=== PATIENT | female | born 1980 | race Caucasian/White ===

== ENCOUNTER → 2016-10-26 | Outpatient (CLI) | payer OTHER ==
[~2016-10-26] VITALS: Ht 167.6 cm; Wt 112.5 kg
[~2016-10-26] MED LIST: CLAR1TAB2 PO; LIDOCAINE 2% INJ 100 MG/5 ML SDV (FOR ANES.) As Ordered ONE; MEDR1VL IM; NS 1,000 ML IV SCH; PRIL20CA PO; PROPOFOL 200 MG/20 ML VIAL As Ordered ONE
--- NOTE | 2016-10-26 09:30 | ROOR ---
Patient Name: Hilary Bacon Procedure Date: 10/26/2016 9:13 AM Date of : 1980 Age: 35 Room: M OP Gender: Female Note Status: Finalized Procedure: Upper GI endoscopy + Biopsies Indications: Heartburn Providers: Jelani Salgado MD Referring MD: GAETANO GALICIA DO Requesting Provider: Medicines: Monitored Anesthesia Care Complications: No immediate complications. Procedure: Pre-Anesthesia Assessment: - The heart rate, respiratory rate, oxygen saturations, blood pressure, adequacy of pulmonary ventilation, and response to care were monitored throughout the procedure. The Endoscope was introduced through the mouth, and advanced to the second part of duodenum. The upper GI endoscopy was accomplished without difficulty. The patient tolerated the procedure well. Findings: The Z-line was variable and was found 35 cm from the incisors. Multiple biopsies were obtained with cold forceps for evaluation to rule out Tomlinson's Esophagus randomly at the gastroesophageal junction. A medium-sized hiatus hernia was present. No other significant abnormalities were identified in a careful examination of the stomach. The exam of the duodenum was otherwise normal. Impression: - Z-line variable, 35 cm from the incisors. - Medium-sized hiatus hernia. - Multiple biopsies were obtained at the gastroesophageal junction. - The examination was otherwise normal. Recommendation: - Patient has a contact number available for emergencies. The signs and symptoms of potential delayed complications were discussed with the patient. Return to normal activities tomorrow. Written discharge instructions were provided to the patient. - High fiber diet. - Discharge patient to home. - Follow an antireflux regimen. - Continue present medications. - Await pathology results. - Telephone GI clinic for pathology results in 1 week. - Return to referring physician. - The findings and recommendations were discussed with the patient's family. Jelani Salgado MD Jelani Salgado MD 10/26/2016 9:30:06 AM This report has been signed electronically. Number of Addenda: 0 Note Initiated On: 10/26/2016 9:13 AM Estimated Blood Loss: Estimated blood loss: none.
[2016-10-26 10:00] VITALS: BP 169/79
== END ==
LOC: M OPP 08:09
PROVIDERS: ATTEND Internal Medicine Gastroenterology
DX: R12 Heartburn (principal); K44.9 Diaphragmatic hernia without obstruction or gangrene; K22.8 Other specified diseases of esophagus; R06.83 Snoring; J45.909 Unspecified asthma, uncomplicated; F17.200 Nicotine dependence, unspecified, uncomplicated; Z80.41 Family history of malignant neoplasm of ovary; Z88.6 Allergy status to analgesic agent; Z57.8 Occupational exposure to other risk factors; Z79.899 Other long term (current) drug therapy

== ENCOUNTER 2022-06-25 10:41 | Emergency (ER) | payer OTHER ==
[~2022-06-25] VITALS: Ht 167.6 cm; Wt 121.9 kg
[~2022-06-25 10:41] MED LIST changes: -LIDOCAINE 2% INJ 100 MG/5 ML SDV (FOR ANES.) As Ordered ONE; -NS 1,000 ML IV SCH; -PRIL20CA PO; +PRIL20CA9 PO; -PROPOFOL 200 MG/20 ML VIAL As Ordered ONE
[2022-06-25 10:42] VITALS: BP 150/80
[2022-06-25] MEDS ORDERED: OMEP-173 (10:59)
[2022-06-25] MEDS ORDERED: ALBU8.5H (10:59)
[2022-06-25] MEDS ORDERED: MONT10TA97 (10:59)
[2022-06-25] MEDS ORDERED: ALBU2.5V10 (10:59)
== END 2022-06-25 12:37 | disposition left against medical advice (07) ==
LOC: M ED 10:41
DX: Z53.21 Procedure and treatment not carried out due to patient leaving prior to being seen by health care provider (principal)

== ENCOUNTER → 2024-06-06 | Outpatient (CLI) | payer OTHER ==
[~2024-06-06] MED LIST changes: +ALBU2.5V10; +ALBU8.5H; +MONT10TA97; +OMEP-173
== END ==
LOC: M WHC 12:38
PROVIDERS: ATTEND Nurse Practitioner
DX: Z12.31 Encounter for screening mammogram for malignant neoplasm of breast (principal); R92.313 Mammographic fatty tissue density, bilateral breasts